=== PATIENT | female | born 1990 | race Two or more races ===

== ENCOUNTER 2019-10-17 08:45 | Inpatient (IN) | payer OTHER ==
[~2019-10-17] VITALS: Ht 175.3 cm; Wt 3.6 kg
[2019-10-19] MEDS ORDERED: PRENATAL CAPLE1 EAC1 PO (11:24)
== END 2019-10-23 16:22 | disposition home or self-care (01) | DRG 788 ==
LOC: OB/GYN 10-19 08:45 → O/R 10-19 11:40 → OB/GYN 10-19 15:06
PROVIDERS: ADMIT Obstetrics & Gynecology
PROC: 4A1HXFZ Monitoring of Products of Conception, Cardiac Rhythm, External Approach (ICD-10-PCS; 2019-10-19)
PROC: 10D00Z1 Extraction of Products of Conception, Low, Open Approach (ICD-10-PCS; principal; 2019-10-19 11:00)
DX: O34.211 Maternal care for low transverse scar from previous cesarean delivery (principal); Z3A.39 39 weeks gestation of pregnancy; Z37.0 Single live birth; K64.8 Other hemorrhoids; O99.214 Obesity complicating childbirth; E66.01 Morbid (severe) obesity due to excess calories

== ENCOUNTER 2021-01-02 19:47 | Emergency (ER) | payer OTHER ==
[~2021-01-02] VITALS: Ht 172.7 cm; Wt 139.3 kg
[~2021-01-02 19:47] MED LIST: PRENATAL CAPLE1 EAC1 PO
[2021-01-02] MEDS ORDERED: CLARITIN5 MG PO (23:45)
[2021-01-02] MEDS ORDERED: 3-DAY VAGINAL C21 GM VAG (23:45)
[2021-01-02] MEDS ORDERED: MUCINEX DM ER1 EACH PO (23:45)
== END 2021-01-03 00:06 | disposition home or self-care (01) ==
LOC: ER 19:47
DX: J06.9 Acute upper respiratory infection, unspecified (principal); R05 Cough; R06.02 Shortness of breath; J18.9 Pneumonia, unspecified organism; Z11.52 Encounter for screening for COVID-19

== ENCOUNTER 2021-01-30 22:43 | Emergency (ER) | payer OTHER ==
[~2021-01-30] VITALS: Ht 172.7 cm; Wt 143.8 kg
[~2021-01-30 22:43] MED LIST changes: +3-DAY VAGINAL C21 GM VAG; +CLARITIN5 MG PO; +MUCINEX DM ER1 EACH PO
== END 2021-01-31 02:17 | disposition home or self-care (01) ==
LOC: ER 22:43
DX: O26.893 Other specified pregnancy related conditions, third trimester (principal); K52.9 Noninfective gastroenteritis and colitis, unspecified; R42 Dizziness and giddiness; Z34.03 Encounter for supervision of normal first pregnancy, third trimester

== ENCOUNTER 2021-03-22 09:00 | Inpatient (IN) | payer OTHER ==
[~2021-03-22] VITALS: Ht 172.7 cm; Wt 3.6 kg
== END 2021-03-30 14:51 | disposition home or self-care (01) | DRG 785 ==
LOC: OB/GYN 03-27 09:00 → O/R 03-27 09:53 → OB/GYN 03-27 09:53
PROVIDERS: ADMIT Obstetrics & Gynecology; ATTEND Obstetrics & Gynecology
PROC: 0UB70ZZ Excision of Bilateral Fallopian Tubes, Open Approach (ICD-10-PCS; 2021-03-27)
PROC: 4A1HXFZ Monitoring of Products of Conception, Cardiac Rhythm, External Approach (ICD-10-PCS; 2021-03-27)
PROC: 10D00Z1 Extraction of Products of Conception, Low, Open Approach (ICD-10-PCS; principal; 2021-03-27 09:00)
DX: O34.211 Maternal care for low transverse scar from previous cesarean delivery (principal); Z30.2 Encounter for sterilization; Z37.0 Single live birth; Z3A.39 39 weeks gestation of pregnancy